=== PATIENT | female | born 1960 | race Caucasian/White ===

== ENCOUNTER → 2019-03-13 | Outpatient (CLI) | payer OTHER ==
--- NOTE | 2019-03-15 07:42 | MM ---
Reason for exam: screening (asymptomatic). Last mammogram was performed 2 years and 8 months ago. History: Patient is postmenopausal and is nulliparous. Family history of breast cancer in paternal grandmother. MG Screening Mammo w CAD Bilateral CC and MLO view(s) were taken. Prior study comparison: July 02, 2016, bilateral MG screening mammo w CAD. There are scattered fibroglandular densities. No suspicious abnormality. No significant new finding when compared with prior studies. ASSESSMENT: Negative, BI-RAD 1 RECOMMENDATION: Routine screening mammogram of both breasts in 1 year.
== END | disposition home or self-care (01) ==
LOC: RADMAMWWP 07:39
PROVIDERS: ATTEND Family Medicine
DX: Z12.31 Encounter for screening mammogram for malignant neoplasm of breast (principal); Z80.3 Family history of malignant neoplasm of breast
CPT/HCPCS: 77067

== ENCOUNTER → 2019-04-27 | Outpatient (CLI) | payer OTHER ==
--- NOTE | 2019-04-27 14:09 | US ---
EXAMINATION TYPE: US venous doppler duplex LE LT DATE OF EXAM: 04/27/2019 11:33 AM COMPARISON: NONE CLINICAL HISTORY: Left leg; R22.42 swelling left leg; M79.662 PAIN. Left lower anterior leg swelling x 4 days. SIDE PERFORMED: left TECHNIQUE: The lower extremity deep venous system is examined utilizing real time linear array sonog jose with graded compression, doppler sonography and color-flow sonography. VESSELS IMAGED: Common Femoral Vein Deep Femoral Vein Greater Saphenous Vein * Femoral Vein Popliteal Vein Small Saphenous Vein * Proximal Calf Veins (* superficial vessels) Left Leg: Negative for DVT. Grayscale, color doppler, spectral doppler imaging performed of the deep veins of the left lower extr emity. There is normal flow, compressibility, vascular waveforms. IMPRESSION: No ultrasound evidence for acute DVT in the left lower extremity.
== END | disposition home or self-care (01) ==
LOC: RADUSWWP 11:11
PROVIDERS: ATTEND Internal Medicine
DX: M79.662 Pain in left lower leg (principal)

== ENCOUNTER → 2020-12-30 | Outpatient (CLI) | payer OTHER ==
--- NOTE | 2020-12-30 15:13 | US ---
EXAMINATION TYPE: US venous doppler duplex LE LT DATE OF EXAM: 12/30/2020 2:28 PM COMPARISON: US 2019 CLINICAL HISTORY: M79.662 Pain in left lower leg. Left leg swelling x 3 years SIDE PERFORMED: Left TECHNIQUE: The lower extremity deep venous system is examined utilizing real time linear array sonog jose with graded compression, doppler sonography and color-flow sonography. VESSELS IMAGED: Common Femoral Vein Deep Femoral Vein Greater Saphenous Vein * Femoral Vein Popliteal Vein Small Saphenous Vein * Proximal Calf Veins (* superficial vessels) Left Leg: Appears negative for DVT IMPRESSION: Grayscale, color doppler, spectral doppler imaging performed of the deep veins of the lo wer extremities. There is normal flow, compressibility, vascular waveforms. Note evidence of left l ower extremity deep venous thrombosis.
== END | disposition home or self-care (01) ==
LOC: RADUSWWP 13:24
PROVIDERS: ATTEND Family Medicine
DX: M79.662 Pain in left lower leg (principal)

== ENCOUNTER → 2022-03-05 | Outpatient (CLI) | payer OTHER ==
--- NOTE | 2022-03-05 12:13 | XR ---
EXAMINATION TYPE: XR knee limited LT DATE OF EXAM: 03/05/2022 11:52 AM INDICATION: Patient age:Female; 61 years old; Reason for study: Knee Trauma S80.912A; COMPARISON: None. TECHNIQUE: The Left knee(s) was examined in 2 projections. Frontal, lateral. FINDINGS: Tricompartmental osteophyte formation with joint space narrowing. No evidence of any acute osseous pathology, and soft tissue swelling. Small joint effusion present. IMPRESSION: 1. No acute osseous pathology. 2. Moderate to severe. Tricompartmental osteoarthritic changes. 3. Small joint effusion.
== END | disposition home or self-care (01) ==
LOC: RADXRMAIN 11:18
PROVIDERS: ATTEND Family Medicine
DX: M17.12 Unilateral primary osteoarthritis, left knee (principal); M25.462 Effusion, left knee; S80.912A Unspecified superficial injury of left knee, initial encounter; X58.XXXA Exposure to other specified factors, initial encounter

== ENCOUNTER → 2022-11-19 | Outpatient (CLI) | payer OTHER ==
--- NOTE | 2022-11-20 08:09 | MM ---
Reason for Exam: Screening (asymptomatic). Last mammogram was performed 3 year(s) and 9 month(s) ago. Patient History: Menarche at age 14. Patient has no children. Postmenopausal. Paternal grandmother had breast cancer. Maternal aunt had ovarian cancer. Risk Values: Leeanne 5 year model risk: 1.5%. NCI Lifetime model risk: 8.3%. Prior Study Comparison: 07/02/2016 Bilateral Screening Mammogram, [facility]. 03/13/2019 Bilateral Screening Mammogram, [facility]. Tissue Density: There are scattered fibroglandular densities. Findings: Analyzed By CAD. There is no suspicious group of microcalcifications or new suspicious mass in either breast. Overall Assessment: Negative, BI-RAD 1 Management: Screening Mammogram of both breasts in 1 year. A clinical breast exam by your physician is recommended on an annual basis and results should be correlated with mammographic findings. Electronically signed and approved by: Ford Duenas M.D.
== END | disposition home or self-care (01) ==
LOC: RADMAMWWP 16:12
PROVIDERS: ATTEND Family Medicine
DX: Z12.31 Encounter for screening mammogram for malignant neoplasm of breast (principal); Z78.0 Asymptomatic menopausal state; Z80.3 Family history of malignant neoplasm of breast
CPT/HCPCS: 77067

== ENCOUNTER → 2022-11-19 | Outpatient (CLI) | payer OTHER ==
--- NOTE | 2022-11-19 17:35 | CT ---
EXAMINATION TYPE: CT lumbar spine wo con DATE OF EXAM: 11/19/2022 5:06 PM COMPARISON: None. HISTORY: Lower back pain, pain into right lower extremity for [address] DLP: 2697.8 mGycm Automated exposure control for dose reduction was used. Unenhanced CT of the lumbar spine was performed. Bone and soft tissue window settings are submitted as well as coronal and sagittal reconstructions. There are 5 lumbar-type vertebra. Lumbar spine shows slight grade 1 anterolisthesis of L3 on L4 and L 4 on L5. Vertebral body heights and disc space heights are preserved. No acute displaced fracture. Axial images at T12-L1 level appear within normal limits. Axial images at L1-L2 level show mild to moderate broad-based posterior disc protrusion mildly effaci ng the anterior thecal sac with mild facet arthropathy bilaterally. Patent bilateral neural foramina. Axial images at L2-L3 level shows mild broad-based disc bulge minimally effacing anterior thecal sac and mild facet arthropathy bilaterally. Patent bilateral neural foramina. Axial images at L3-L4 level show spondylolisthesis with mild/moderate broad disc bulge mildly effacin g the anterior thecal sac and mild/moderate right greater than left facet arthropathy. There is mild left-sided anterior inferior neural foraminal narrowing. Axial images at L4-L5 level show moderate to advanced facet arthropathy bilaterally. There is spondyl olisthesis. There is mild bilateral neural foraminal narrowing. Axial images at L5-S1 level show [id number] facet arthropathy bilaterally. Spinal canal is pres erved. Bilateral neural foramina are patent. There are 2 nonobstructing 2 mm calculi upper pole of the left kidney coronal images 40 and 41. There is partial visualization of exophytic lytic 2.4 cm lesion from the lower pole right kidney laterally favoring benign thin-walled cyst. A diverticula in the proximal transverse colon is noted coronal im age 15. IMPRESSION: Multilevel spondylolisthesis and degenerative change in the lumbar spine as detailed param ceja
== END | disposition home or self-care (01) ==
LOC: RADCTMAIN 16:42
PROVIDERS: ATTEND Family Medicine
DX: M43.16 Spondylolisthesis, lumbar region (principal); M47.816 Spondylosis without myelopathy or radiculopathy, lumbar region
CPT/HCPCS: 72131

== ENCOUNTER → 2023-07-13 | Outpatient (CLI) | payer OTHER ==
--- NOTE | 2023-07-13 11:46 | CA ---
Lexiscan Nuclear Stress Test Report Name: Lisa Bolaños Exam Date: 07/13/2023 10:33 Exam Location: [facility] Ht (in): 67 Wt (lb): 260 BSA: 2.26 Ordering Phys: Abelino Reeves MD Referring Phys: Abelino Reeves MD Technologist: Tim Marlow Age: 62 Gender: F : 1960 Procedure CPT: Indications: R94.31 ABNORMAL EKG ICD-10 Codes: Patient History: Medications: Meds past 24 hrs: Pretest Chest Pain: STRESS TEST Lexiscan Protocol Exercise Duration (min:sec): 01:[address] Depressions (mm): Angina Score: Coronado Score: Resting HR (bpm): 77 Peak HR (bpm): 99 Resting BP (mmHg): 129 / 75 Peak BP (mmHg): 117 / 77 MPHR: 160 Target HR: 136 % MPHR: 62 METS: 1.0 Total Dose: Peak Dose: Atropine: Double Product: 75944 BP Response: Stress Termination: INFUSION COMPLETE Stress Symptoms: NECK PAIN Stress Summary: ECG ANALYSIS Resting ECG: Normal sinus rhythm normal axis normal intervals Stress ECG: Patient was given intravenous Lexiscan as a protocol did not have chest pain or diagnostic ST segment depression CONCLUSIONS Negative stress test by EKG criteria Cardiolite portion of the stress test will be reported separately Dr. Lukasz Bolden MD (Electronically Signed) Final Date: 13 July 2023 11:45
--- NOTE | 2023-07-13 13:15 | NM ---
EXAMINATION TYPE: NM stress lexiscan cardiolite DATE OF EXAM: 07/13/2023 COMPARISON: CLINICAL INDICATION: Female, 62 years old with history of R94.31 ABNORMAL EKG; TECHNIQUE: After the intravenous administration of 9.5 mCi Tc 99m Sestamibi - Cardiolite resting SPE CT images acquired 45 minutes post injection. The patient received 0.4mg Lexiscan, 26.6 mCi Tc 99m Sestamibi - Stress images obtained [address] injection FINDINGS: Review of stress and rest SPECT images demonstrates small area of reversible ischemia anteroseptal wa ll. No Fixed defects Gated analysis shows normal wall motion with an estimated left ventricular eject ion fraction of 62 %. IMPRESSION: small area of reversible ischemia anteroseptal wall.
== END | disposition home or self-care (01) ==
LOC: RADNMMAIN 08:47
PROVIDERS: ATTEND Family Medicine
DX: I24.89 Other forms of acute ischemic heart disease (principal); R94.31 Abnormal electrocardiogram [ECG] [EKG]
CPT/HCPCS: 93017; 78452; A9500

== ENCOUNTER → 2023-07-20 | Outpatient (CLI) | payer OTHER ==
--- NOTE | 2023-07-20 12:22 | XR ---
EXAMINATION TYPE: XR Hip Complete LT DATE OF EXAM: 07/20/2023 CLINICAL HISTORY: pain TECHNIQUE: AP and frogleg views of the left hip are obtained. COMPARISON: None. FINDINGS: There is no acute fracture/dislocation evident. The joint space appears within normal li mits. The overlying soft tissue appears unremarkable. IMPRESSION: 1. There is no acute fracture or dislocation.ICD 10 NO FRACTURE, INITIAL EVALUATION
--- NOTE | 2023-07-20 12:24 | XR ---
EXAMINATION TYPE: XR knee complete bilateral DATE OF EXAM: 07/20/2023 CLINICAL HISTORY: pain TECHNIQUE: Three views of the left knee are obtained. COMPARISON: None. FINDINGS: There is no acute fracture/dislocation. The tri-compartment joint spaces appear severely narrowed. Spur formation about the margins of the femoral condyles and tibial plateaus as well as int ercondylar regions. The overlying soft tissue appears unremarkable. IMPRESSION: There is no acute fracture or dislocation ICD 10 NO FRACTURE, INITIAL EVALUATION
--- NOTE | 2023-07-20 12:31 | XR ---
EXAMINATION TYPE: XR lumbosacral spine min 4V DATE OF EXAM: 07/20/2023 CLINICAL HISTORY: pain COMPARISON: NONE TECHNIQUE: Frontal, lateral, and oblique images of the lumbar spine are obtained. FINDINGS: There are 5 lumbar type vertebral bodies identified. The lumbar spine shows satisfactory alignment without evidence of acute fracture or dislocation. Vertebral body heights are within normal limits. Mild multilevel degenerative disc disease and spondylosis. The overlying soft tissue appea rs unremarkable. IMPRESSION: No acute fracture or dislocation is seen in the lumbar spine.ICD 10 NO FRACTURE, INITIAL EVALUATION
== END | disposition home or self-care (01) ==
LOC: RADXRMAIN 11:40
PROVIDERS: ATTEND Family Medicine
DX: M54.50 Low back pain, unspecified (principal); M25.562 Pain in left knee; M25.561 Pain in right knee; M25.552 Pain in left hip
CPT/HCPCS: 72110; 73502